=== PATIENT | female | born 1940 | race Caucasian/White ===

== ENCOUNTER 2019-01-17 12:29 | Inpatient (IN) | payer MEDICARE, OTHER ==
[~2019-01-17] VITALS: Ht 165.1 cm; Wt 88.0 kg
[~2019-01-17 12:29] MED LIST: ALLO300T2 PO; CARAS PO; CLON-379 PO; CLOP75TA27 PO; DOXY100T20 PO; FURO-110 PO; HYDR-4011 PO; LD2VS100B MM; LINA1TAB5 PO; LORA1TAB PO; LOSA1TAB25 PO; METO-335 PO; PANT40TA3 PO; POTA8CAP PO; ROSU20TA PO; SENN-120 PO; SIME80TA PO; ZOLP10TA5 PO
[2019-01-17] MEDS ORDERED: SOD CHLORIDE 0.9% 500 ML IV STA (12:54)
[2019-01-17] MEDS ORDERED: ESCI10TA48 PO (13:41)
[2019-01-17] MEDS ORDERED: FURO20TA3 PO (13:42)
[2019-01-17] MEDS ORDERED: ATOR20TA38 PO (13:42)
[2019-01-17] MEDS ORDERED: ERGO500013 PO (13:43)
[2019-01-17] MEDS ORDERED: HYDR-3671 PO (13:44)
[2019-01-17] MEDS ORDERED: AMLO5TAB4 PO (13:45)
[2019-01-17] MEDS ORDERED: TRAZ-149 PO (13:46)
[2019-01-17] MEDS ORDERED: GABA100C14 PO (13:47)
[2019-01-17] MEDS ORDERED: ONDA8TAB83 PO (13:52)
--- NOTE | 2019-01-17 15:03 | ERD ---
ER Documentation Chief Complaint Chief Complaint bib ra 39 for generalized weakness and generalized body pains HPI This is a 78-year-old female who was sent by her primary care because of increasing creatinine. The patient's baseline creatinine is around 2-2.2 according to the family and was sent in for a creatinine of over 4. The patient is on diuretics. She has a porcine heart valve but is not on any type of anticoagulant. Patient has complaints of generalized weakness over the past 2 weeks with some decreased urine output despite being on diuretics. No leg swelling no shortness of breath ROS All systems reviewed and are negative except as per history of present illness. Medications Home Meds Active Scripts Simethicone* (Mylanta Gas*) 80 Mg Tab.chew, 80 MG PO Q6H PRN for DISTENSION/GAS/BLOATING for 30 Days, TAB.CHEW Prov:NEHEMIAS CALDWELL NP 09/28/16 Pantoprazole* (Protonix*) 40 Mg Tablet.dr, 40 MG PO BID for 42 Days, TAB Prov:NEHEMIAS CALDWELL NP 09/28/16 Hydrocodone/Acetaminophen ([place] 5-325 Tablet) 1 Each Tablet, 1 EACH PO Q6, #7 TAB Prov:BOLA VALLES DO 09/15/16 Reported Medications Ondansetron Hcl* (Ondansetron Hcl*) 8 Mg Tablet, 8 MG PO Q8 PRN for NAUSEA AND/OR VOMITING, TAB 01/17/19 Gabapentin* (Gabapentin*) 100 Mg Capsule, 100 MG PO Q6, #90 CAP 01/17/19 Trazodone Hcl* (Desyrel*) 50 Mg Tab, 50 MG PO QHS, #30 TAB 01/17/19 Amlodipine Besylate* (Norvasc*) 5 Mg Tablet, 5 MG PO TID, TAB 01/17/19 Hydralazine Hcl* (Hydralazine Hcl*) 25 Mg Tab, 25 MG PO Q4 PRN for ELEVATED BLOOD PRESSURE, #120 TAB 01/17/19 Ergocalciferol (Vitamin D2) (VITAMIN D2) 50,000 Unit Capsule, 95811 UNIT PO WEEKLY, CAP 01/17/19 Atorvastatin Calcium* (Atorvastatin Calcium*) 20 Mg Tablet, 20 MG PO QHS, #30 TAB 01/17/19 Furosemide* (Furosemide*) 20 Mg Tablet, 20 MG PO DAILY, #60 TAB 01/17/19 Escitalopram Oxalate* (Escitalopram Oxalate*) 10 Mg Tablet, 10 MG PO DAILY 01/17/19 Linagliptin-Metformin (Jentadueto) 2.5-1,000 Mg Tablet, 1 TAB PO BID, TAB 08/26/16 Lorazepam* (Lorazepam*) 1 Mg Tablet, 1 MG PO DAILY PRN for ANXIETY, #30 TAB 08/26/16 Potassium Chloride* (Potassium Chloride*) 8 Meq Capsule.er, 8 MEQ PO DAILY, CAP 08/26/16 Clopidogrel Bisulfate (Clopidogrel) 75 Mg Tablet, 75 MG PO DAILY, #30 TAB 08/26/16 Metoprolol Succinate* (Toprol XL*) 25 Mg Tab.sr.24h, 25 MG PO BID, #30 TAB 08/26/16 Sennosides* (Senna Lax*) 8.6 Mg Tablet, 1 TAB PO DAILY, TAB 08/26/16 Losartan-Hydrochlorothiazide (Losartan-HCTZ) 100-25 Mg Tab, 1 TAB PO DAILY, TAB 08/26/16 Discontinued Reported Medications Rosuvastatin Calcium* (Crestor*) 20 Mg Tablet, 20 MG PO QHS, #30 TAB 08/26/16 Furosemide* (Lasix*) 20 Mg Tablet, 20 MG PO BID, TAB 08/26/16 Zolpidem Tartrate* (Zolpidem Tartrate*) 10 Mg Tablet, 10 MG PO QHS PRN for INSOMNIA, #30 TAB 08/26/16 Allopurinol* (Allopurinol*) 300 Mg Tablet, 150 MG PO DAILY, TAB 08/26/16 Clonidine Hcl* (Clonidine Hcl*) 0.1 Mg Tab, 0.1 MG PO Q8 PRN for ELEVATED BLOOD PRESSURE, TAB 08/26/16 Discontinued Scripts Doxycycline Hyclate* (Doxycycline Hyclate*) 100 Mg Tablet.dr, 100 MG PO BID for 10 Days, TAB Prov:CALDWELLNEHEMIAS V. ELECTRIC DRILL OPERATOR 09/28/16 Sucralfate* (Carafate*) 1 Gm/10 Ml Susp, 1 GM PO QID for 42 Days, EA Prov:CALDWELLKHRISA Ramy. ELECTRIC DRILL OPERATOR 09/28/16 Lidocaine Viscous 2%* (Lidocaine Viscous 2%*) 100 Ml Soln, 15 ML MM every 3 hours for abdominal pain, #120 ML Prov:DARLING KRAFT DO 08/26/16 Allergies Allergies: Coded Allergies: Penicillins (Unverified Allergy, Unknown, 01/17/19) PMhx/Soc History of Surgery: Yes (open heartvalve replacement 08/2013,hysterectomy',bladder remvd,hernia re) Anesthesia Reaction: No Hx Neurological Disorder: No Hx Respiratory Disorders: No Hx Cardiac Disorders: Yes (htn) Hx Psychiatric Problems: No Hx Miscellaneous Medical Probl: No Hx Alcohol Use: No Hx Substance Use: No Hx Tobacco Use: No Smoking Status: Never smoker FmHx Family History: No coronary disease Physical Exam Vitals Vital Signs Date Temp Pulse Resp B/P (MAP) Pulse Ox O2 O2 Flow FiO2 Time Delivery Rate 01/17/19 98.1 88 18 144/81 100 Room Air 13:02 (102) 01/17/19 98.1 82 19 148/82 98 12:33 (104) Physical Exam Const: Well-developed, well-nourished Head: Atraumatic, normocephalic Eyes: Normal Conjunctiva, PERRLA, EOMI, normal sclera, no nystagmus ENT: Normal External Ears, Nose and Mouth, moist mucus membranes. Neck: Full range of motion. No meningismus, no lymphadenopathy. Resp: Clear to auscultation bilaterally, no wheezing, rhonchi, rales Cardio: Regular rate and rhythm, no murmurs, S1 S2 present Abd: Soft, non tender x 4, non distended. Normal bowel sounds, no guarding or rebound, no pulsitile abdominal masses or bruits Skin: No petechiae or rashes, no ecchymosis , no maculopapular rash Back: No midline or flank tenderness Ext: No cyanosis, or edema, FROM x 4, normal inspection, neurovascularly intact x 4 Neur: Awake and alert, STR 5/5 x 4, sensation intact x 4, no focal findings, cerebellum intact Psych: Normal Mood and Affect Result Diagram: 01/17/19 1255 01/17/19 1255 Results 24 hrs Laboratory Tests Test 01/17/19 12:55 01/17/19 14:30 White Blood Count 7.7 10^3/ul Red Blood Count 3.70 10^6/ul Hemoglobin 10.5 g/dl Hematocrit 33.3 % Mean Corpuscular Volume 90.0 fl Mean Corpuscular Hemoglobin 28.4 pg Mean Corpuscular Hemoglobin Concent 31.5 g/dl Red Cell Distribution Width 14.3 % Platelet Count 259 10^3/UL Mean Platelet Volume 10.1 fl Immature Granulocytes % 0.700 % Neutrophils % 62.4 % Lymphocytes % 25.2 % Monocytes % 5.6 % Eosinophils % 4.8 % Basophils % 1.3 % Nucleated Red Blood Cells % 0.0 /100WBC Immature Granulocytes # 0.050 10^3/ul Neutrophils # 4.8 10^3/ul Lymphocytes # 1.9 10^3/ul Monocytes # 0.4 10^3/ul Eosinophils # 0.4 10^3/ul Basophils # 0.1 10^3/ul Nucleated Red Blood Cells # 0.0 10^3/ul Sodium Level 143 mmol/L Potassium Level 4.8 mmol/L Chloride Level 113 mmol/L Carbon Dioxide Level 16 mmol/L Anion Gap 14 Blood Urea Nitrogen 62 mg/dl Creatinine 4.81 mg/dl Est Glomerular Filtrat Rate mL/min mL/min Glucose Level 124 mg/dl Calcium Level 10.3 mg/dl Total Bilirubin 0.6 mg/dl Direct Bilirubin 0.00 mg/dl Indirect Bilirubin 0.6 mg/dl Aspartate Amino Transf (AST/SGOT) 22 IU/L Alanine Aminotransferase (ALT/SGPT) 24 IU/L Alkaline Phosphatase 77 IU/L Total Protein 6.8 g/dl Albumin 4.1 g/dl Globulin 2.70 g/dl Albumin/Globulin Ratio 1.51 Urine Color YELLOW Urine Clarity CLEAR Urine pH 5.0 Urine Specific [place] 1.011 Urine Ketones NEGATIVE mg/dL Urine Nitrite NEGATIVE mg/dL Urine Bilirubin NEGATIVE mg/dL Urine Urobilinogen NEGATIVE mg/dL Urine Leukocyte Esterase TRACE Hermann/ul Urine Microscopic RBC 1 /HPF Urine Microscopic WBC 5 /HPF Urine Squamous Epithelial Cells FEW /HPF Urine Hemoglobin NEGATIVE mg/dL Urine Glucose NEGATIVE mg/dL Urine Total Protein NEGATIVE mg/dl Current Medications Medications Dose Sig/Man Start Time Status Last (Trade) Ordered Route PRN Stop Time Admin Dose Reason Admin Sodium 500 ml @ Q1H STAT 01/17/19 DC 01/17/19 Chloride 500 mls/hr IV 12:54 01/17/19 13:16 13:53 Procedures/MDM MR #: [id number] DOS: 01/17/19 1254 Ordering MD: DARLING KRAFT DO Location: E/R Room/Bed: PROCEDURE: XR Chest. CLINICAL INDICATION: Abdominal pain TECHNIQUE: Frontal chest x-ray was obtained. COMPARISON: None. FINDINGS: The heart is not enlarged. Mediastinum is not widened. No hilar masses seen. Lungs are clear of any infiltrates. There is no effusion or pneumothorax. The osseous structures appear normal. The patient is post CABG. IMPRESSION: No evidence for active cardiopulmonary disease. .Samy Boo MD, MD Date Time Electronically viewed and signed by .Samy Boo MD, MD on 01/17/2019 13:52 .A/ CC: DARLING KRAFT DO [id number] Patient's creatinine is elevated at 4.8 will admit to the hospital for renal workup. Likely is over diuresed. Will admit to panel Departure Diagnosis: Primary Impression: Renal failure Renal failure chronicity: acute on chronic Acute renal failure type: unspecified Chronic kidney disease stage: unspecified stage Qualified Codes: N17.9 - Acute kidney failure, unspecified; N18.9 - Chronic kidney disease, unspecified Condition: Stable DARLING KRAFT DO Jan 17, 2019 15:03
[2019-01-17] MEDS ORDERED: ACETAMINOPHEN 325 MG TAB PO PRN (15:30)
[2019-01-17] MEDS ORDERED: ONDANSETRON 4 MG INJ IV PRN (15:30)
[2019-01-17] MEDS ORDERED: LORAZEPAM 1 MG TAB PO PRN (16:30)
--- NOTE | 2019-01-17 16:49 | HP ---
Date/Time of Note Date/Time of Note DATE: 01/17/19 TIME: 16:41 Assessment/Plan VTE Prophylaxis Pharmacological prophylaxis: heparin Lines/Catheters IV Catheter Type (from Nrsg): Saline Lock Assessment/Plan Hospital Course 78 yo female with h/o CKD III, porcine aortic valve, hypertension, DMII who presents with lethargy and orthostatic symptoms, found to have LAZARO LAZARO: - From clinical history, prerenal azotemia is most likely diagnosis. She has had little PO intake and continues to take lasix, HCTZ, and losartan - We will provide volume expansion and hold these medications. I suspect her creatine will normalize. We will work it up further if it does not - Dr Chris to consult Hypertension: - Hold home meds for now, BP ok H/o porcine valve DMII: - sliding scale insulin Discharge planning: Anticipate dc home in coming 1-2 days pending renal workup Result Diagram: 01/17/19 1255 01/17/19 1255 Results 24hrs Laboratory Tests Test 01/17/19 12:55 01/17/19 14:30 White Blood Count 7.7 # Red Blood Count 3.70 L Hemoglobin 10.5 L Hematocrit 33.3 L Mean Corpuscular Volume 90.0 Mean Corpuscular Hemoglobin 28.4 L Mean Corpuscular Hemoglobin Concent 31.5 L Red Cell Distribution Width 14.3 Platelet Count 259 Mean Platelet Volume 10.1 # Immature Granulocytes % 0.700 H Neutrophils % 62.4 Lymphocytes % 25.2 Monocytes % 5.6 Eosinophils % 4.8 Basophils % 1.3 Nucleated Red Blood Cells % 0.0 Immature Granulocytes # 0.050 H Neutrophils # 4.8 Lymphocytes # 1.9 Monocytes # 0.4 Eosinophils # 0.4 Basophils # 0.1 Nucleated Red Blood Cells # 0.0 Sodium Level 143 Potassium Level 4.8 Chloride Level 113 H Carbon Dioxide Level 16 L Anion Gap 14 H Blood Urea Nitrogen 62 H Creatinine 4.81 H Est Glomerular Filtrat Rate mL/min Glucose Level 124 Calcium Level 10.3 H Total Bilirubin 0.6 Direct Bilirubin 0.00 Indirect Bilirubin 0.6 Aspartate Amino Transf (AST/SGOT) 22 Alanine Aminotransferase (ALT/SGPT) 24 Alkaline Phosphatase 77 Total Protein 6.8 Albumin 4.1 Globulin 2.70 Albumin/Globulin Ratio 1.51 Urine Color YELLOW Urine Clarity CLEAR Urine pH 5.0 Urine Specific [place] 1.011 Urine Ketones NEGATIVE Urine Nitrite NEGATIVE Urine Bilirubin NEGATIVE Urine Urobilinogen NEGATIVE Urine Leukocyte Esterase TRACE A Urine Microscopic RBC 1 Urine Microscopic WBC 5 Urine Squamous Epithelial Cells FEW Urine Hemoglobin NEGATIVE Urine Glucose NEGATIVE Urine Total Protein NEGATIVE HPI/ROS Admit Date/Time Admit Date/Time Jan 17, 2019 at 15:01 Hx of Present Illness 78 yo female with h/o CKD III, porcine aortic valve, hypertension, DMII presents with elevated creatinine Patient on lasix and losartan and HCTZ. Has developed lethargy and poor appetitie. A bit of nausea. Feels week and lightheaded. Her PMD noted elevated creatinine to over 4 from baseline about 2. Suggested she come to the hospital. Today the patient had orthostatic symptoms and family called 911. She reports feeling thirsty. Says she is scared to eat because she is worried about potassium level. Denies dypshagia or dyspepsia ROS Constitutional: no complaints, improved Eyes: no complaints ENT: no complaints Respiratory: no complaints Cardiovascular: no complaints Gastrointestinal: no complaints Genitourinary: no complaints Musculoskeletal: no complaints Skin: no complaints Neurologic: no complaints Endocrine: no complaints Lymphatic: no complaints Psychological: no complaints, nl mood/affect Immunologic: no complaints PMH/Family/Social Past Medical History Medical History: diabetes, renal disease Medications Current Medications Clopidogrel Bisulfate (plaVIX) 75 mg DAILY PO ; Start 01/18/19 at 09:00 Escitalopram Oxalate (Lexapro) 10 mg DAILY PO ; Start 01/18/19 at 09:00 Hydralazine HCl (Apresoline) 25 mg Q4 PRN PO ELEVATED BLOOD PRESSURE; Start 01/17/19 at 16:30; Status UNV Lorazepam (Ativan) 1 mg DAILY PRN PO ANXIETY; Start 01/17/19 at 16:30 Metoprolol Succinate (Toprol Xl) 25 mg BID PO ; Start 01/17/19 at 21:00 Pantoprazole (Protonix Tab) 40 mg BID PO ; Start 01/17/19 at 21:00 Trazodone HCl (Desyrel) 50 mg QHS PO ; Start 01/17/19 at 21:00 Coded Allergies: Penicillins (Unverified Allergy, Unknown, 01/17/19) Past Surgical History Past Surgical Hx: no surgical history, other Family History Significant Family History: no pertinent family hx Social History Alcohol Use: none Smoking Status: Never smoker Drug Use: none Exam/Review of Systems Vital Signs Vitals Vital Signs Date Temp Pulse Resp B/P (MAP) Pulse Ox O2 O2 Flow FiO2 Time Delivery Rate 01/17/19 98.1 89 18 138/85 100 Room Air 15:56 (102) Exam Constitutional: alert, oriented, well developed Psych: no complaints, nl mood/affect Head: normocephalic, atraumatic Eyes: nl conjunctiva, EOMI, nl lids, nl sclera, PERRL ENMT: nl external ears & nose, nl lips & teeth, nl nasal mucosa & septum Neck: supple, non-tender Respiratory: clear to auscultation, normal air movement Cardiovascular: regular rate and rhythm, nl pulses Gastrointestinal: soft, nl liver, spleen, non-tender Musculoskeletal: nl extremities to inspection Extremities: normal pulses Neurological: SPANISHER II-XII intact, nl mental status, nl speech, nl strength Skin: nl turgor; No rash or lesions Lymph: nl lymph nodes ENRRIQUE BAEZ MD Jan 17, 2019 16:49
[2019-01-17 16:55] VITALS: Ht 165.1 cm; Wt 88.0 kg
[2019-01-17] MEDS ORDERED: NACL 0.9% 3 ML SYG IV SCH (17:00)
[2019-01-17] MEDS ORDERED: OXYCODONE/ACETAMINOPHEN (5/325) TAB PO PRN (17:00)
[2019-01-17] MEDS ORDERED: SOD CHLORIDE 0.9% 500 ML IV ONE (17:00)
[2019-01-17 18:29] VITALS: BP 169/72; PULSE 80; RESP 18
[2019-01-17] MEDS: SOD CHLORIDE 0.45% 1,000 ML IV SCH (19:11)
[2019-01-17 19:46] VITALS: BP 175/72; PULSE 87; RESP 16
[2019-01-17] MEDS: PANTOPRAZOLE (EC) 40 MG TAB PO SCH (20:17)
[2019-01-17] MEDS: METOPROLOL (XL) 25 MG TAB PO SCH (20:17)
--- NOTE | 2019-01-17 20:22 | CONS ---
DATE OF ADMISSION: 01/17/2019 DATE OF CONSULTATION: TYPE OF CONSULTATION: Nephrology. REASON FOR CONSULTATION: Acute kidney injury. PHYSICIAN REQUESTING CONSULT: Dr. Santizo HISTORY OF PRESENT ILLNESS: This is an 78-year-old female with the past medical history of CKD stage IV with the unknown baseline creatinine with possible EGFR around 20 to 30 mL per minute per family, history of hypertension, history of diabetes, history of aortic valve replacement who presents to [facility] with lethargy and weakness. The patient states over the last several days , she has had decreased oral intake, poor appetite, nausea, lightheadedness. The patient states that she recently went to see her primary bending press operator, Dr. Mcelroy and told her that her renal function has declined and this patient may be approaching dialysis if there is no change in patient's lifesty le or behavior modification. The patient states that she has been scared to eat, worried about her p otassium levels. As a result, she has had increased weakness. The patient now presents back to [facility] after a near syncope. Upon arrival, patient had laboratory data checked and drawn which showed a creatinine of 4.81. Imaging studies including a chest x-ray showed an evidence of cardiopulmonary disease. The patient was placed on IV fluids and admitted to med/surg for evalua tion. In terms of patient's renal history, patient has underlying CKD with a possible recent progression, a [facility] patient's baseline creatinine is unknown. Estimated EGFR per family about 20 to 30 mL per mi nute. The patient admits to poor oral intake. The patient does take diuretic at home as well as ARB losartan. She denies any hemoptysis, hematemesis or hematochezia. PAST MEDICAL HISTORY: See above, history of chronic kidney disease, history of hypertension, history of diabetes. PAST SURGICAL HISTORY: Status post aortic valve replacement and status post hysterectomy. FAMILY HISTORY: No family history of kidney disease. SOCIAL HISTORY: She does not drink, smoke or do drugs. MEDICATIONS: The patient's medications have been reviewed. ALLERGIES: THE PATIENT IS ALLERGIC TO PENICILLIN. REVIEW OF SYSTEMS: A 14-point review of systems was conducted. Pertinent positives are as stated in HPI, otherwise negative. PHYSICAL EXAMINATION: VITAL SIGNS: Blood pressure is 169/72, respiration 18, pulse 80, temperature 98.0. HEENT: Head is normocephalic. NECK: Supple. HEART: Regular rate. LUNGS: Show diminished breath sounds at the base. ABDOMEN: Soft, nontender to palpation, without rebound or guarding. EXTREMITIES: Negative for clubbing, cyanosis. No edema. DERMATOLOGIC: No rashes. MUSCULOSKELETAL: No joint effusions. NEUROLOGIC: No focal deficits. LABORATORY DATA: Shows white count of 7.7, hemoglobin 10.5, platelet count 259. Sodium 143, potassi um 4.8, chloride 113, bicarbonate 16, BUN 62, creatinine 10.81. Urinalysis shows no hematuria, mild pyuria, no proteinuria. ASSESSMENT AND PLAN: This is an 78-year-old female who presents with problem: 1. Nonoliguric acute kidney injury ____ chronic kidney disease stage IV with the unknown baseline cr eatinine, possibly GFR between 20 to 30 mL per minute. Etiology of current acute kidney injury may b e secondary to hemodynamics, depletion secondary to diuretic use, decreased oral intake, ARB effect. The patient's urinalysis was reviewed, no active sediment. Plan at this point is to do a full evalu ation. We will check a renal ultrasound to rule out any form of obstruction, although suspicion is l ow. We will continue IV hydration. We will check urinalysis and calculated FENa. Otherwise, contin ue supportive care and renally dose all meds, and avoid nephrotoxins. No immediate need for renal re placement therapy at this time. I would defer any OPAL inhibitor or diuretics at this time. 2. Metabolic acidosis secondary to acute kidney injury and chronic kidney disease. We will continue to monitor bicarbonate level and to consider checking an ABG. No immediate need for bicarbonate the rapy. 3. Anemia. Continue to monitor hemoglobin and hematocrit levels. 4. Mineral bone disorder. Monitor calcium and phosphorus levels. 5. Hypertension. Monitor blood pressure closely on IV hydration and avoid any OPAL inhibitor or ARB. 6. Diabetes. Continue Accu-Cheks and insulin sliding scale. 7. History of aortic valve replacement. Continue to monitor. Thank you, Dr. Santizo, for this interesting consult. It will be a pleasure to follow patient with layla munoz throughout the hospital course. Dictated By: ABBY PRUETT/AMANDA Conf#: [id number] DID#: [id number] CC: ENRRIQUE SANTIZO MD;*[facility]*
[2019-01-17] MEDS: HEPARIN 5,000 UNIT/1 ML VIAL SC SCH (20:24)
[2019-01-17] MEDS: traZODone 50 MG TAB PO SCH (21:33)
[2019-01-18 01:30] VITALS: BP 161/70; PULSE 77; RESP 18
[2019-01-18] MEDS: SOD CHLORIDE 0.45% 1,000 ML IV SCH ×4 (05:14→22:34)
[2019-01-18 07:18] VITALS: BP_SYST 159; PULSE 82; RESP 16
[2019-01-18 08:10] VITALS: BP 159/71; PULSE 82; RESP 16
[2019-01-18] MEDS: CLOPIDOGREL 75 MG TAB PO SCH (08:12)
[2019-01-18] MEDS: PANTOPRAZOLE (EC) 40 MG TAB PO SCH ×2 (08:12→21:33)
[2019-01-18] MEDS: ESCITALOPRAM 10 MG TAB PO SCH (08:12)
[2019-01-18] MEDS: METOPROLOL (XL) 25 MG TAB PO SCH ×2 (08:13→21:34)
[2019-01-18] MEDS: HEPARIN 5,000 UNIT/1 ML VIAL SC SCH ×3 (09:00→21:35)
[2019-01-18] MEDS ORDERED: MAGNESIUM SULFATE 2 GM/50 ML 50 ML IVPB ONE (10:30)
--- NOTE | 2019-01-18 10:48 | PN ---
DATE: 01/18/2019 SUBJECTIVE: The patient is stable. No events overnight. The patient had good urinary output. No o ther events noted. OBJECTIVE: VITAL SIGNS: Blood pressure is 159/71, respirations 16, pulse 82, temperature is 98.0. HEENT: Head is normocephalic. NECK: Supple. HEART: Regular rate. LUNGS: Show diminished breath sounds at the base. ABDOMEN: Soft, nontender to palpation. No rebound or guarding. EXTREMITIES: Negative for clubbing, cyanosis, no edema. DERMATOLOGIC: No rashes. MUSCULOSKELETAL: No joint effusion. NEUROLOGIC: No change in exam. MEDICATIONS: Reviewed. LABORATORY DATA: Shows sodium 142, potassium 4.2, chloride 114, bicarbonate 18, BUN 50, creatinine 3 .76. The patient had a FENa of 1%, protein creatinine ratio of 300 mg per gram of creatinine. IMAGING: The patient's renal ultrasound shows echogenic kidneys consistent with medical renal diseas e, no hydronephrosis. ASSESSMENT AND PLAN: 1. Nonoliguric acute kidney injury on top of chronic kidney disease stage IV with unknown baseline c reatinine, possible EGFR of approximately 20 to 30 mL per minute. Etiology of acute kidney injury ma y be secondary to hemodynamics due to volume depletion, diuretic use, ARB effect. The patient's estela l function has improved mildly with IV hydration. Urinalysis was reviewed, no active sediment. Estela l ultrasound shows no obstruction. At this point, continue current treatment plan, supportive care, and renally dose all meds. Would continue gentle IV hydration for another 24 hours. 2. Metabolic acidosis likely secondary to acute kidney injury and chronic kidney disease. Continue to monitor bicarbonate levels, consider checking ABG. 3. Anemia. Monitor hemoglobin and hematocrit levels. 4. Mineral bone disorder. Monitor calcium and phosphorus levels. 5. Hypertension. Etiology in part due to volume expansion with IV fluids. Will continue to monitor closely. Continue current blood pressure regimen. Would defer OPAL inhibitor, ARB at this time. If blood pressure remains elevated, consider discontinuing IV fluids. 6. Diabetes. Continue current insulin regimen. 7. History of aortic valve replacement. Dictated By: ABBY RAMOS DO NR/NTS Conf#: [id number] DID#: [id number] CC: ENRRIQUE BAEZ MD;*[facility]*
[2019-01-18 14:31] VITALS: BP 161/66; PULSE 79; RESP 17
--- NOTE | 2019-01-18 15:15 | PN ---
Date/Time of Note Date/Time of Note DATE: 01/18/19 TIME: 15:14 Assessment/Plan VTE Prophylaxis Risk score (from Ns)>0 risk: 3 SCD applied (from Ns): Yes Pharmacological prophylaxis: heparin Lines/Catheters IV Catheter Type (from Nrs): Peripheral IV Urinary Cath still in place: No Reason Cath still needed: urinary retention Assessment/Plan Hospital Course 78 yo female with h/o CKD III, porcine aortic valve, hypertension, DMII who presents with lethargy and orthostatic symptoms, found to have LAZARO LAZARO: - From clinical history, prerenal azotemia is most likely diagnosis. She has had little PO intake while continuing to take lasix, HCTZ, and losartan - We will continue volume expansion and hold these medications. I suspect her creatine will normalize in next day or so - Dr Chris following Hypertension: - Hold home meds for now, BP ok H/o porcine valve DMII: - sliding scale insulin Discharge planning: Anticipate dc home in coming 1-2 days pending renal workup PT/OT evaluation Result Diagram: 01/18/19 0532 01/18/19 0532 Results 24hrs Laboratory Tests Test 01/17/19 19:05 01/18/19 05:32 Urine Color STRAW Urine Clarity CLEAR Urine pH 5.0 Urine Specific [place] 1.011 Urine Ketones NEGATIVE Urine Nitrite NEGATIVE Urine Bilirubin NEGATIVE Urine Urobilinogen NEGATIVE Urine Leukocyte Esterase NEGATIVE Urine Hemoglobin NEGATIVE Urine Random Creatinine 76.62 Urine Random Sodium 56 Urine Glucose NEGATIVE Urine Total Protein 24.0 H White Blood Count 6.8 Red Blood Count 3.21 L Hemoglobin 9.2 L Hematocrit 29.0 L Mean Corpuscular Volume 90.3 Mean Corpuscular Hemoglobin 28.7 L Mean Corpuscular Hemoglobin Concent 31.7 L Red Cell Distribution Width 13.9 Platelet Count 240 Mean Platelet Volume 9.9 Immature Granulocytes % 0.600 H Neutrophils % 52.2 Lymphocytes % 33.3 Monocytes % 6.5 Eosinophils % 6.1 Basophils % 1.3 Nucleated Red Blood Cells % 0.0 Immature Granulocytes # 0.040 H Neutrophils # 3.5 Lymphocytes # 2.3 Monocytes # 0.4 Eosinophils # 0.4 Basophils # 0.1 Nucleated Red Blood Cells # 0.0 Sodium Level 142 Potassium Level 4.2 Chloride Level 114 H Carbon Dioxide Level 18 L Anion Gap 10 Blood Urea Nitrogen 50 H Creatinine 3.76 #H Est Glomerular Filtrat Rate mL/min Glucose Level 100 Hemoglobin A1c 6.5 H Calcium Level 9.3 Phosphorus Level 3.3 Magnesium Level 1.4 L Subjective 24 Hr Interval Summary Free Text/Dictation Renal function is improving Taking PO No complaints Exam/Review of Systems Exam Vitals Vital Signs Date Temp Pulse Resp B/P (MAP) Pulse Ox O2 O2 Flow FiO2 Time Delivery Rate 01/18/19 97.7 79 17 161/66 95 Room Air 14:31 (97) Intake and Output 01/17/19 01/17/19 01/18/19 1515:00 23:00 07:00 IntakeIntake Total 1240 ml 650 ml BalanceBalance 1240 ml 650 ml Constitutional: alert, oriented, well developed Psych: no complaints, nl mood/affect Head: normocephalic, atraumatic Eyes: nl conjunctiva, EOMI, nl lids, nl sclera, PERRL ENMT: nl external ears & nose, nl lips & teeth, nl nasal mucosa & septum Neck: supple, non-tender Respiratory: clear to auscultation, normal air movement Cardiovascular: regular rate and rhythm, nl pulses Gastrointestinal: soft, nl liver, spleen, non-tender Musculoskeletal: nl extremities to inspection, nl gait and stance Extremities: normal pulses Neurological: 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 intact, nl mental status, nl speech, nl strength Skin: nl turgor; No rash or lesions Lymph: nl lymph nodes Results Results 24hrs Laboratory Tests Test 01/17/19 19:05 01/18/19 05:32 Urine Color STRAW Urine Clarity CLEAR Urine pH 5.0 Urine Specific [place] 1.011 Urine Ketones NEGATIVE Urine Nitrite NEGATIVE Urine Bilirubin NEGATIVE Urine Urobilinogen NEGATIVE Urine Leukocyte Esterase NEGATIVE Urine Hemoglobin NEGATIVE Urine Random Creatinine 76.62 Urine Random Sodium 56 Urine Glucose NEGATIVE Urine Total Protein 24.0 H White Blood Count 6.8 Red Blood Count 3.21 L Hemoglobin 9.2 L Hematocrit 29.0 L Mean Corpuscular Volume 90.3 Mean Corpuscular Hemoglobin 28.7 L Mean Corpuscular Hemoglobin Concent 31.7 L Red Cell Distribution Width 13.9 Platelet Count 240 Mean Platelet Volume 9.9 Immature Granulocytes % 0.600 H Neutrophils % 52.2 Lymphocytes % 33.3 Monocytes % 6.5 Eosinophils % 6.1 Basophils % 1.3 Nucleated Red Blood Cells % 0.0 Immature Granulocytes # 0.040 H Neutrophils # 3.5 Lymphocytes # 2.3 Monocytes # 0.4 Eosinophils # 0.4 Basophils # 0.1 Nucleated Red Blood Cells # 0.0 Sodium Level 142 Potassium Level 4.2 Chloride Level 114 H Carbon Dioxide Level 18 L Anion Gap 10 Blood Urea Nitrogen 50 H Creatinine 3.76 #H Est Glomerular Filtrat Rate mL/min Glucose Level 100 Hemoglobin A1c 6.5 H Calcium Level 9.3 Phosphorus Level 3.3 Magnesium Level 1.4 L Medications Medication Current Medications Clopidogrel Bisulfate (plaVIX) 75 mg DAILY PO Last administered on 01/18/19 08:12; Admin Dose 75 MG; Start 01/18/19 at 09:00 Escitalopram Oxalate (Lexapro) 10 mg DAILY PO Last administered on 01/18/19 08:12; Admin Dose 10 MG; Start 01/18/19 at 09:00 Lorazepam (Ativan) 1 mg DAILY PRN PO ANXIETY Last administered on 01/18/19 03:56; Admin Dose 1 MG; Start 01/17/19 at 16:30 Metoprolol Succinate (Toprol Xl) 25 mg BID PO Last administered on 01/18/19 08:13; Admin Dose 25 MG; Start 01/17/19 at 21:00 Pantoprazole (Protonix Tab) 40 mg BID PO Last administered on 01/18/19 08:12; Admin Dose 40 MG; Start 01/17/19 at 21:00 Trazodone HCl (Desyrel) 50 mg QHS PO Last administered on 01/17/19 21:33; Admin Dose 50 MG; Start 01/17/19 at 21:00 Sodium Chloride 1,000 ml @ 80 mls/hr [id number] IV Last administered on 01/18/19 10:38; Admin Dose 80 MLS/HR; Start 01/17/19 at 16:44 IV Flush (NS 3 ml) 3 ml PER PROTOCOL IV ; Start 01/17/19 at 17:00 Oxycodone/ Acetaminophen (Percocet (5/ 325)) 1 tab Q6H PRN PO .MOD PAIN 4-6; Start 01/17/19 at 17:00 Heparin Sodium (Porcine) (Heparin (5000 Units/1ml)) 5,000 unit Q12 SC Last administered on 01/18/19 11:01; Admin Dose 5,000 UNIT; Start 01/17/19 at 21:00 Hydralazine HCl (Apresoline) 25 mg Q4H PRN PO SBP > 160 Last administered on 01/18/19at 14:37; Admin Dose 25 MG; Start 01/17/19 at 19:00 ENRRIQUE BAEZ MD Jan 18, 2019 15:15
[2019-01-18 19:25] VITALS: BP 166/72; PULSE 91; RESP 18
[2019-01-18] MEDS: traZODone 50 MG TAB PO SCH (21:00)
[2019-01-19 00:53] VITALS: BP 157/68; PULSE 82; RESP 18
[2019-01-19 07:36] VITALS: BP 177/81; PULSE 89; RESP 20
[2019-01-19] MEDS: ESCITALOPRAM 10 MG TAB PO SCH (08:45)
[2019-01-19] MEDS: PANTOPRAZOLE (EC) 40 MG TAB PO SCH ×2 (08:45→20:27)
[2019-01-19] MEDS: CLOPIDOGREL 75 MG TAB PO SCH (08:45)
[2019-01-19] MEDS: METOPROLOL (XL) 25 MG TAB PO SCH ×2 (08:46→20:27)
[2019-01-19] MEDS: HEPARIN 5,000 UNIT/1 ML VIAL SC SCH ×2 (08:52→09:00)
[2019-01-19] MEDS: AMLODIPINE 10 MG TAB PO SCH (09:09)
--- NOTE | 2019-01-19 10:34 | PN ---
DATE: 01/19/2019 SUBJECTIVE: The patient is stable, no events overnight. No fevers, chills, nausea, or vomiting. OBJECTIVE: VITAL SIGNS: Blood pressure is 177/81, respirations 20, pulse 89, temperature 99.1. HEENT: Head is normocephalic. NECK: Supple. HEART: Regular rate. LUNGS: Show diminished breath sounds at the base. ABDOMEN: Soft, nontender to palpation without rebound or guarding. EXTREMITIES: Negative for clubbing, cyanosis, no edema. DERMATOLOGIC: No rashes. MUSCULOSKELETAL: No joint effusion. NEUROLOGIC: No change in exam. MEDICATIONS: The patient's medications have been reviewed. LABORATORY DATA: Shows sodium 142, potassium 4.1, chloride 112, bicarbonate 18, BUN 34, creatinine 2 .45. White count 7.3, hemoglobin 9.9, platelet count is 255. ASSESSMENT AND PLAN: 1. Nonoliguric acute kidney injury on top of chronic kidney disease stage IV with unknown baseline c reatinine, possibly around 2 to 2.5 mg/dL per family. Etiology of acute kidney injury is secondary t o hemodynamics due to volume depletion, diuretic use and ARB effect. Renal function has improved wit h IV fluids, possibly nearing previous baseline. At this point, we will discontinue IV fluids, cresencio nue plans, supportive care, renally dose all medicines. 2. Metabolic acidosis secondary to acute kidney injury and chronic kidney disease. We will continue to monitor bicarbonate levels. 3. Anemia. Monitor hemoglobin and hematocrit levels. 4. Mineral bone disorder. Monitor calcium and phosphorus levels. 5. Hypertension. We will discontinue IV fluids, monitor closely. Continue current blood pressure r egimen. 6. Diabetes. Continue current insulin regimen. 7. History of valvular replacement. Dictated By: ABBY RAMOS DO NR/NTS Conf#: [id number] DID#: [id number] CC: ABBY RAMOS DO; ENRRIQUE BAEZ MD;*End*
[2019-01-19 10:59] VITALS: BP 154/70
[2019-01-19] MEDS: MAGNESIUM OXIDE 400 MG TAB PO SCH ×2 (12:32→20:28)
[2019-01-19] MEDS: SENNA TAB PO SCH (12:41)
[2019-01-19 13:41] VITALS: BP 140/65; PULSE 80; RESP 20
--- NOTE | 2019-01-19 16:18 | PN ---
Date/Time of Note Date/Time of Note DATE: 01/19/19 TIME: 16:16 Assessment/Plan VTE Prophylaxis Risk score (from Ns)>0 risk: 5 SCD applied (from Ns): Yes Pharmacological prophylaxis: NA/contraindicated Pharm contraindication: low risk/ambulating Lines/Catheters [facility]from [facility] Peripheral IV Urinary Cath still in place: No Assessment/Plan Hospital Course 78 yo female with h/o CKD III, porcine aortic valve, hypertension, DMII who presents with lethargy and orthostatic symptoms, found to have LAZARO LAZARO secondary to profound dehydration-improved with fluids - From clinical history, prerenal azotemia is most likely diagnosis. She has had little PO intake while continuing to take lasix, HCTZ, and losartan - We will continue volume expansion and hold these medications - Dr Chris following Hypertension: - Hold home meds for now, BP ok H/o porcine valve DMII: - sliding scale insulin Discharge planning: Anticipate dc home tomorrow PT/OT evaluation Result Diagram: 01/19/19 0558 01/19/19 0558 Results 24hrs Laboratory Tests Test 01/19/19 05:58 White Blood Count 7.3 Red Blood Count 3.42 L Hemoglobin 9.9 L Hematocrit 30.4 L Mean Corpuscular Volume 88.9 Mean Corpuscular Hemoglobin 28.9 L Mean Corpuscular Hemoglobin Concent 32.6 Red Cell Distribution Width 13.8 Platelet Count 255 Mean Platelet Volume 9.9 Immature Granulocytes % 1.100 H Neutrophils % 54.5 Lymphocytes % 31.3 Monocytes % 6.5 Eosinophils % 5.6 Basophils % 1.0 Nucleated Red Blood Cells % 0.0 Immature Granulocytes # 0.080 H Neutrophils # 4.0 Lymphocytes # 2.3 Monocytes # 0.5 Eosinophils # 0.4 Basophils # 0.1 Nucleated Red Blood Cells # 0.0 Sodium Level 142 Potassium Level 4.1 Chloride Level 112 H Carbon Dioxide Level 18 L Anion Gap 12 Blood Urea Nitrogen 34 #H Creatinine 2.45 #H Est Glomerular Filtrat Rate mL/min Glucose Level 119 Calcium Level 9.5 Phosphorus Level 2.6 Magnesium Level 1.7 Subjective 24 Hr Interval Summary Constitutional: no complaints Exam/Review of Systems Exam Vitals Vital Signs Date Temp Pulse Resp B/P (MAP) Pulse Ox O2 O2 Flow FiO2 Time Delivery Rate 01/19/19 98.5 80 20 140/65 98 13:41 (90) 01/18/19 Room Air 14:31 Intake and Output 01/18/19 01/18/19 01/19/19 1515:00 23:00 07:00 IntakeIntake Total 580 ml 1130 ml 1000 ml BalanceBalance 580 ml 1130 ml 1000 ml Constitutional: alert, oriented Respiratory: clear to auscultation Cardiovascular: regular rate and rhythm Gastrointestinal: soft; No distended Musculoskeletal: nl extremities to inspection Results Results 24hrs Laboratory Tests Test 01/19/19 05:58 White Blood Count 7.3 Red Blood Count 3.42 L Hemoglobin 9.9 L Hematocrit 30.4 L Mean Corpuscular Volume 88.9 Mean Corpuscular Hemoglobin 28.9 L Mean Corpuscular Hemoglobin Concent 32.6 Red Cell Distribution Width 13.8 Platelet Count 255 Mean Platelet Volume 9.9 Immature Granulocytes % 1.100 H Neutrophils % 54.5 Lymphocytes % 31.3 Monocytes % 6.5 Eosinophils % 5.6 Basophils % 1.0 Nucleated Red Blood Cells % 0.0 Immature Granulocytes # 0.080 H Neutrophils # 4.0 Lymphocytes # 2.3 Monocytes # 0.5 Eosinophils # 0.4 Basophils # 0.1 Nucleated Red Blood Cells # 0.0 Sodium Level 142 Potassium Level 4.1 Chloride Level 112 H Carbon Dioxide Level 18 L Anion Gap 12 Blood Urea Nitrogen 34 #H Creatinine 2.45 #H Est Glomerular Filtrat Rate mL/min Glucose Level 119 Calcium Level 9.5 Phosphorus Level 2.6 Magnesium Level 1.7 Medications Medication Current Medications Clopidogrel Bisulfate (plaVIX) 75 mg DAILY PO Last administered on 01/19/19at 08:45; Admin Dose 75 MG; Start 01/18/19 at 09:00 Escitalopram Oxalate (Lexapro) 10 mg DAILY PO Last administered on 01/19/19at 08:45; Admin Dose 10 MG; Start 01/18/19 at 09:00 Lorazepam (Ativan) 1 mg DAILY PRN PO ANXIETY Last administered on 01/18/19at 03:56; Admin Dose 1 MG; Start 01/17/19 at 16:30 Metoprolol Succinate (Toprol Xl) 25 mg BID PO Last administered on 01/19/19at 08:46; Admin Dose 25 MG; Start 01/17/19 at 21:00 Pantoprazole (Protonix Tab) 40 mg BID PO Last administered on 01/19/19 08:45; Admin Dose 40 MG; Start 01/17/19 at 21:00 Trazodone HCl (Desyrel) 50 mg QHS PO Last administered on 01/17/19 21:33; Admin Dose 50 MG; Start 01/17/19 at 21:00 IV Flush (NS 3 ml) 3 ml PER PROTOCOL IV ; Start 01/17/19 at 17:00 Oxycodone/ Acetaminophen (Percocet (5/ 325)) 1 tab Q6H PRN PO .MOD PAIN 4-6; Start 01/17/19 at 17:00 Heparin Sodium (Porcine) (Heparin (5000 Units/1ml)) 5,000 unit Q12 SC Last administered on 01/18/19 21:35; Admin Dose 5,000 UNIT; Start 01/17/19 at 21:00 Hydralazine HCl (Apresoline) 25 mg Q4H PRN PO SBP > 160 Last administered on 01/18/19 19:50; Admin Dose 25 MG; Start 01/17/19 at 19:00 Amlodipine Besylate (Norvasc) 10 mg DAILY PO Last administered on 01/19/19 09:09; Admin Dose 10 MG; Start 01/19/19 at 09:00 Magnesium Oxide (Mag-Ox 400) 400 mg BID PO Last administered on 01/19/19 12:32; Admin Dose 400 MG; Start 01/19/19 at 11:30 Senna (Senokot) 3 tab DAILY PO Last administered on 01/19/19 12:41; Admin Dose 3 TAB; Start 01/19/19 at 13:00 JENNIFER LANDIS Jan 19, 2019 16:18
[2019-01-19] MEDS ORDERED: traMADol 50 MG TAB PO PRN (16:30)
[2019-01-19 19:21] VITALS: BP 169/76; PULSE 86; RESP 18
[2019-01-19] MEDS: traZODone 50 MG TAB PO SCH (20:27)
[2019-01-19 21:55] VITALS: BP 145/65; PULSE 78
[2019-01-20 01:16] VITALS: BP 158/73; PULSE 65; RESP 18
[2019-01-20 07:43] VITALS: BP 140/60; PULSE 80; RESP 20
[2019-01-20] MEDS: MAGNESIUM OXIDE 400 MG TAB PO SCH (08:34)
[2019-01-20] MEDS: CLOPIDOGREL 75 MG TAB PO SCH (08:34)
[2019-01-20] MEDS: AMLODIPINE 10 MG TAB PO SCH (08:34)
[2019-01-20] MEDS: METOPROLOL (XL) 25 MG TAB PO SCH (08:35)
[2019-01-20] MEDS: ESCITALOPRAM 10 MG TAB PO SCH (08:35)
[2019-01-20] MEDS: PANTOPRAZOLE (EC) 40 MG TAB PO SCH (08:35)
[2019-01-20] MEDS: SENNA TAB PO SCH (08:35)
[2019-01-20] MEDS ORDERED: LOSARTAN 25 MG TAB PO SCH (09:00)
--- NOTE | 2019-01-20 09:06 | PN ---
DATE: 01/20/2019 SUBJECTIVE: The patient is stable, no events overnight. OBJECTIVE: VITAL SIGNS: Blood pressure is 140/60, respirations 20, pulse 80, temperature 97.9. HEENT: Head is normocephalic. NECK: Supple. HEART: Regular rate. LUNGS: Show diminished breath sounds at the base. ABDOMEN: Soft, nontender to palpation without rebound or guarding. EXTREMITIES: Negative for clubbing, cyanosis, no edema. DERMATOLOGIC: No rashes. MUSCULOSKELETAL: No joint effusion. NEUROLOGIC: No change in exam. MEDICATIONS: Reviewed. LABORATORY DATA: Shows sodium 141, potassium 4.3, chloride 110, BUN 27, creatinine 1.98. White coun t 8.5, hemoglobin 10.5, platelet count 283. ASSESSMENT AND PLAN: 1. Nonoliguric acute kidney injury on top of chronic kidney disease stage IV with unknown baseline c reatinine. Possible creatinine around 2 to 2.5 mg/dL. Etiology of acute kidney injury is secondary to hemodynamics, volume depletion, and diuretic use. The patient's renal function has improved. At this point, continue current treatment plans, supportive care, renally dose all medicines. 2. Metabolic acidosis secondary to acute kidney injury and chronic kidney disease. Continue to jun tor bicarbonate levels. 3. Anemia. Continue to monitor hemoglobin and hematocrit levels. 4. Mineral bone disorder, monitor calcium and phosphorus levels. 5. Hypertension. Blood pressure is elevated, but slowly improving. Continue current blood pressure regimen. We will restart the patient on Losartan. 6. Diabetes. Continue current insulin regimen. 7. History of valvular replacement porcine valve. Dictated By: ABBY RAMOS DO NR/NTS Conf#: [id number] DID#: [id number] CC: ENRRIQUE BAEZ MD; ABBY RAMOS DO; JENNIFER LANDIS MD;*EndCC*
--- NOTE | 2019-01-20 10:21 | PDOCDIS ---
Discharge Instructions CONDITION [id number] Patient Condition: [id number] Good HOME CARE INSTRUCTIONS: [id number] Diet Instructions: [id number] Reduced Calorie ACTIVITY: [id number] Activity Restrictions: [id number] No Restrictions FOLLOW UP/APPOINTMENTS Follow-up Plan FOLLOW UP WITH YOUR PCP IN 1-2 WEEKS JENNIFER LANDIS Jan 20, 2019 10:21
--- NOTE | 2019-01-20 13:47 | DS ---
Date/Time of Note Date/Time of Note DATE: 01/20/19 TIME: 13:42 Discharge Summary Admission/Discharge Info Admit Date/Time Jan 17, 2019 at 15:01 Discharge Date/Time January 20, 2019 Discharge Diagnosis LAZARO secondary to profound dehydration-improved with fluids - From clinical history, prerenal azotemia is most likely diagnosis. She has had little PO intake while continuing to take lasix, HCTZ, and losartan -Status post fluids -Nephrology consultation appreciated Hypertension: -Okay to resume home meds including ARB per nephrology H/o porcine valve DMII: - sliding scale insulin Morbid obesity -Lifestyle changes Debility secondary to obesity and comorbidities -Home health has been arranged, patient is able to ambulate with a walker Patient Condition: Good Hospital Course Patient is an 78 yo female with h/o CKD III, porcine aortic valve, hypertension, DMII who presents with lethargy and orthostatic symptoms, found to have LAZARO secondary to profound dehydration. Patient was scared that she will require dialysis misunderstood her windows security engineer and stopped eating and drinking fluids. Patient was seen by nephrology and renal function and blood pressure did improve with fluids. Patient did ambulate with PT and a front wheel walker, porter sample case did arrange for home health. Patient was stable for DC to home was told that she should increase her water intake. On the day of discharge patient's vitals, labs and physical exam are stable. Home Meds Active Scripts Simethicone* (Mylanta Gas*) 80 Mg Tab.chew, 80 MG PO Q6H PRN for DISTENSION/GAS/BLOATING for 30 Days, TAB.CHEW Prov:NEHEMIAS CALDWELL NP 09/28/16 Pantoprazole* (Protonix*) 40 Mg Tablet.dr, 40 MG PO BID for 42 Days, TAB Prov:NEHEMIAS CALDWELL V. ALCOHOL LAW ENFORCEMENT AGENT 09/28/16 Hydrocodone/Acetaminophen ([place] 5-325 Tablet) 1 Each Tablet, 1 EACH PO Q6, #7 TAB Prov:BOLA VALLES DO 09/15/16 Reported Medications Ondansetron Hcl* (Ondansetron Hcl*) 8 Mg Tablet, 8 MG PO Q8 PRN for NAUSEA AND/OR VOMITING, TAB 01/17/19 Gabapentin* (Gabapentin*) 100 Mg Capsule, 100 MG PO Q6, #90 CAP 01/17/19 Trazodone Hcl* (Desyrel*) 50 Mg Tab, 50 MG PO QHS, #30 TAB 01/17/19 Amlodipine Besylate* (Norvasc*) 5 Mg Tablet, 5 MG PO TID, TAB 01/17/19 Hydralazine Hcl* (Hydralazine Hcl*) 25 Mg Tab, 25 MG PO Q4 PRN for ELEVATED BLOOD PRESSURE, #120 TAB 01/17/19 Ergocalciferol (Vitamin D2) (VITAMIN D2) 50,000 Unit Capsule, 75003 UNIT PO WEEKLY, CAP 01/17/19 Atorvastatin Calcium* (Atorvastatin Calcium*) 20 Mg Tablet, 20 MG PO QHS, #30 TAB 01/17/19 Furosemide* (Furosemide*) 20 Mg Tablet, 20 MG PO DAILY, #60 TAB 01/17/19 Escitalopram Oxalate* (Escitalopram Oxalate*) 10 Mg Tablet, 10 MG PO DAILY 01/17/19 Linagliptin-Metformin (Jentadueto) 2.5-1,000 Mg Tablet, 1 TAB PO BID, TAB 08/26/16 Lorazepam* (Lorazepam*) 1 Mg Tablet, 1 MG PO DAILY PRN for ANXIETY, #30 TAB 08/26/16 Potassium Chloride* (Potassium Chloride*) 8 Meq Capsule.er, 8 MEQ PO DAILY, CAP 08/26/16 Clopidogrel Bisulfate (Clopidogrel) 75 Mg Tablet, 75 MG PO DAILY, #30 TAB 08/26/16 Metoprolol Succinate* (Toprol XL*) 25 Mg Tab.sr.24h, 25 MG PO BID, #30 TAB 08/26/16 Sennosides* (Senna Lax*) 8.6 Mg Tablet, 1 TAB PO DAILY, TAB 08/26/16 Losartan-Hydrochlorothiazide (Losartan-HCTZ) 100-25 Mg Tab, 1 TAB PO DAILY, TAB 08/26/16 Discontinued Reported Medications Rosuvastatin Calcium* (Crestor*) 20 Mg Tablet, 20 MG PO QHS, #30 TAB 08/26/16 Furosemide* (Lasix*) 20 Mg Tablet, 20 MG PO BID, TAB 08/26/16 Zolpidem Tartrate* (Zolpidem Tartrate*) 10 Mg Tablet, 10 MG PO QHS PRN for INSOMNIA, #30 TAB 08/26/16 Allopurinol* (Allopurinol*) 300 Mg Tablet, 150 MG PO DAILY, TAB 08/26/16 Clonidine Hcl* (Clonidine Hcl*) 0.1 Mg Tab, 0.1 MG PO Q8 PRN for ELEVATED BLOOD PRESSURE, TAB 08/26/16 Discontinued Scripts Doxycycline Hyclate* (Doxycycline Hyclate*) 100 Mg Tablet.dr, 100 MG PO BID for 10 Days, TAB Prov:NEHEMIAS CALDWELL V. [employer] LAW ENFORCEMENT AGENT 09/28/16 Sucralfate* (Carafate*) 1 Gm/10 Ml Susp, 1 GM PO QID for 42 Days, EA Prov:NEHEMIAS CALDWELL V. [employer]CO[employer] LAW ENFORCEMENT AGENT 09/28/16 Lidocaine Viscous 2%* (Lidocaine Viscous 2%*) 100 Ml Soln, 15 ML MM every 3 h ours for abdominal pain, #120 ML Prov:DARLING KRAFT DO 08/26/16 Follow-up Plan FOLLOW UP WITH YOUR PCP IN 1-2 WEEKS Primary Care Provider Not On Staff Doctor Time spent on discharge: > 30 minutes JENNIFER LANDIS Jan 20, 2019 13:47
[2019-01-20 13:49] VITALS: BP 138/67; PULSE 79; RESP 20
== END 2019-01-20 14:05 | disposition home health service (06) | DRG 683 ==
LOC: E/R 12:29 → 2NE 15:01
PROVIDERS: ADMIT Internal Medicine; ATTEND Internal Medicine
DX: N17.9 Acute kidney failure, unspecified (principal); E87.2 Acidosis; E11.22 Type 2 diabetes mellitus with diabetic chronic kidney disease; D64.9 Anemia, unspecified; E86.0 Dehydration; E66.01 Morbid (severe) obesity due to excess calories; I12.9 Hypertensive chronic kidney disease with stage 1 through stage 4 chronic kidney disease, or unspecified chronic kidney disease; N18.4 Chronic kidney disease, stage 4 (severe); Z95.3 Presence of xenogenic heart valve; Z79.4 Long term (current) use of insulin; Z68.32 Body mass index [BMI] 32.0-32.9, adult
CPT/HCPCS: 36415; 71045; 76775; 80048; 80053; 81001; 81003; 82043; 83036; 83735; 84100; 84155; 84300; 85025; 96360; 96361; 97110; 97116; 97162; J1644; J3475; J7040